=== PATIENT | male | born 1960 | race Caucasian/White ===

== ENCOUNTER → 2017-03-21 | Outpatient (CLI) | payer OTHER | LOC: SLEEPLAB 11:16 | DX: G47.33 Obstructive sleep apnea (adult) (pediatric) (principal) ==

== ENCOUNTER 2017-05-11 05:56 | Day surgery (SDC) | payer OTHER ==
[2017-05-11] VITALS (7 sets, daily range): BP systolic 106–155; BP diastolic 51–81
[~2017-05-11] VITALS: Ht 177.8 cm; Wt 121.1 kg
--- NOTE | ~2017-05-11 | S ---
[facility] [place] [address] SURGICAL PATH RPT PROCEDURE Name: BRENDEN GREY Room #: [place] [facility] [place]#: [id number] Admission: 05/11/17 Date of : 60 Discharge: 05/12/17 Report #: [id number] Path Case #: [id number] PATHOLOGY REPORT COLLECTION DATE: 05/11/2017 RECEIVED DATE: 05/11/2017 SUBMITTING PHYS: Dr. Remington Gerardo OTHER PHYS: Dr. Tr Meza SPECIMEN(S) RECEIVED: A.Gastric sleeve * * * * * * * * * * * * FINAL DIAGNOSIS: "Gastric sleeve", partial gastrectomy: - Gastric mucosa, submucosa and muscular wall with mild to moderate chronic active gastritis, mild activity and focal intestinal metaplasia; no dysplasia seen. - H. pylori PRESENT in small to moderate numbers by immunohistochemical stain (block A2); control reacted appropriately. (CLW:bayron; 05/14/2017) PATHOLOGIST: Lana Wall M.D. REPORT ELECTRONICALLY SIGNED BY: Lana Wall M.D. DATE/TIME: 05/15/2017 09:41 * * * * * * * * * * * * GROSS PATHOLOGY: Received in formalin labeled "Andrew, gastric sleeve", is an elongate portion of stomach with a staple line along its longitudinal axis and weighing 159 g. When opened, it measures 24 cm in length, varies in circumference from about 3.5-13.5 cm and up to 0.6 cm in wall thickness. The serosal surface is generally smooth with a few scattered punctate hemorrhagic areas. The portion of stomach is opened revealing multiple prominent rugal folds and a lumen containing an estimated 10 cc of hemorrhagic material. The mucosal surface has scattered congested and punctate hemorrhagic areas without polyps or masses. [employer] sections are submitted as follows: En face sections of gastric resection margin adjacent staple line A1 and other sections of gastric wall A2-A3. CLINICAL HISTORY: Pre-Op diagnosis: Morbid obesity Postop diagnosis: Same/path pending [facility] [place] [address] SURGICAL PATH RPT PROCEDURE Name: BRENDEN GREY Room #: [facility] M..#: [id number] Admission: 05/11/17 Date of : 60 Discharge: 05/12/17 Report #: [id number] Path Case #: [id number] INITIAL CPT CODE(S): A; 12824, 34249 Professional services performed by [facility] at [address], [place] [address] Technical services performed by [facility] at [address] [place] [address], [facility] [address] [address]. [facility] [address] [place] [id number] PHONE: [phone] DIRECTOR: Ambrocio Whitt M.D. * * * END OF REPORT * * *
--- NOTE | ~2017-05-11 | O ---
[facility] [place] [address] OPERATIVE REPORT Name: BRENDEN GREY Room #: DEP [facility]..#: [id number] Admission: 05/11/17 Attend Phys: Remington Gerardo MD, Discharge: 05/12/17 Date of : 60 Report #: [id number] THIS REPORT FOR: //name// CC: FAM unknown Remington Gerardo DATE OF SERVICE: 05/11/2017 PREOPERATIVE DIAGNOSES: 1. Hypertension. 2. Obstructive sleep apnea. 3. Hyperlipidemia. 4. Lumbago. 5. Bilateral lower extremity joint pain with degenerative arthritis. 6. Coronary artery disease. 7. Morbid obesity with a body mass index of 40.89. POSTOPERATIVE DIAGNOSES: 1. Hypertension. 2. Obstructive sleep apnea. 3. Hyperlipidemia. 4. Lumbago. 5. Bilateral lower extremity joint pain with degenerative arthritis. 6. Coronary artery disease. 7. Morbid obesity with a body mass index of 40.89. PROCEDURES PERFORMED: 1. Laparoscopic sleeve gastrectomy. 2. Esophagogastroduodenoscopy (EGD). SURGEON: Remington Gerardo MD METROLOGY SPECIALIST: Tr Meza MD ANESTHESIA: General endotracheal anesthesia. ESTIMATED BLOOD LOSS: Minimal (less than 10 mL). COMPLICATIONS: None appreciated. SPECIMENS: Gastric sleeve resection specimen to pathology. INDICATIONS: The patient is a 56-year-old morbidly obese male who presented for evaluation for bariatric surgery as he has had a very long history of obesity and has tried numerous weight loss attempts to no avail. The patient has a BMI of greater than 40 while carrying comorbid medical conditions of [facility] [address] [place] [address] OPERATIVE REPORT Name: BRENDEN GREY Room #: [facility] M.R.#: [id number] Admission: 05/11/17 Attend Phys: Remington Gerardo MD, Discharge: 05/12/17 Date of : 60 Report #: [id number] hypertension, hyperlipidemia, coronary artery disease, obstructive sleep apnea, chronic back pain and lower extremity joint pain with arthritis. The patient has been seen by his primary care physician as well as by Psychology and a cna hospice and has received overwhelming support and clearance to proceed with bariatric surgery for weight loss and resolution of his comorbid conditions. The patient has met with me monthly for several months under a physician supervised diet and exercise plan with no real weight loss thus far and as such, indication was for the above-mentioned procedures today. DESCRIPTION OF PROCEDURE: After explaining the risks, benefits and alternatives of the procedure with the patient in detail in the preoperative holding area and obtaining written consent, the patient was brought to the operating room and placed supine on the operating room table. After conducting a thorough timeout procedure verifying correct patient and procedure, the patient was given general endotracheal anesthesia. Once adequate anesthesia was obtained, his SCDs were hooked up to pneumatic compression device and he was given a preoperative dose of antibiotics in line with the SCIP protocol. The patient's abdomen was now prepped and draped in standard surgical sterile fashion after positioning him in the low lithotomy position with his legs in the Yellofin stirrups. I began the procedure by performing an EGD. Using the PsyQicinon upper endoscope, I was able intubate the oropharynx and traverse this down into the esophagus with ease. The scope was advanced to the second portion of the duodenum where slow careful withdrawal of the EGD scope showed no evidence of duodenitis, gastritis, esophagitis, mass lesions or ulcerations. Retroflexion view of the scope showed no evidence of a hiatal hernia. The scope was then straightened out with its tip at the level of pylorus and was taped into position where the stomach was fully desufflated and I turned my attention to the operative portion of the procedure. After sterilely scrubbing, 5 mL of 0.5% Marcaine with epinephrine were used to anesthetize the skin in the right upper abdomen and midclavicular line in a subcostal location. A #15 bladed scalpel was used to create a 1.5 cm transverse skin incision at this location. A 15 mm Visiport was placed over 0 degree 5 mm laparoscope and was introduced through this incision site. Once intraabdominal placement was verified visually, the obturator for the trocar and laparoscope were both removed and the abdomen was insufflated to 15 mmHg using carbon dioxide gas. The laparoscope was changed to a 5 mm 30-degree laparoscope, which was reintroduced through this trocar. The entire abdomen was evaluated to ensure no injury upon entry. I now placed three 5 mm trocars in the patient's left abdomen. The first was placed 1 cm superior to the umbilicus and 2 cm to the patient's left and an additional one was placed 5 cm lateral to that and then a final one was placed in the extreme left lateral flank. All three additional 5 mm ports were placed under direct vision after anesthetizing the skin at each location with 5 mL of 0.5% Marcaine with epinephrine and I had created small skin nicks using #15 bladed scalpel. The laparoscope was now changed to the 5 mm port just to the left of the patient's umbilicus and he was placed in steep reverse Trendelenburg position. I then placed a [place] liver retractor in the subxiphoid location by anesthetizing the skin at that location [facility] [place] [address] OPERATIVE REPORT Name: BRENDEN GREY Room #: DEP [facility] M.R.#: [id number] Admission: 05/11/17 Attend Phys: Remington Gerardo MD, Discharge: 05/12/17 Date of : 60 Report #: [id number] with 5 mL of 0.5% Marcaine with epinephrine and I had created small skin rupert using #15 bladed scalpel. The [place] liver retractor was then maneuvered through this defect where it was positioned up under the left lobe of the liver and was held up against the posterior aspect of the anterior abdominal wall. It was then sutured in position using the Iron Product Blending Supervisor device to stabilize it. We now had complete access to the stomach and hiatal regions and again saw no evidence of a hiatal hernia at this juncture. We now started our dissection after identifying our landmarks. The vein of Marinelli was identified overlying the pylorus. I measured 4 cm proximal to this location and began taking down the short gastric arteries from this location all the way up the greater curvature of the stomach until I arrived upon the base of the left shania. The stomach was then elevated and all posterior gastric attachments were taken down, staying well away from the posterior aspect of the stomach as well as the anterior aspect of the pancreas so as to prevent injury from thermal spread. Now that we had fully mobilized the stomach, we began the stapling portion of the sleeve gastrectomy procedure. The [place] 60 mm stapler with a black load again utilizing Amos's Rose Mary-Strip buttressing material placed on it was entered into the abdomen through the 15 mm trocar. This first firing started at the location 4 cm proximal to the pylorus and fired right along, but not extremely tight to the EGD scope so as not to cause stricturing, especially at the incisura. Another firing of an additional black load again utilizing Amos's Rose Mary-Strip buttressing material was carried out following the scope as a 34-Mongolian bougie. Six additional firings of green loads all utilizing Amos's Rose Mary-Strip buttressing material were carried out following the scope as a bougie all the way up to the left shania until the stomach was completely transected. The resection specimen was placed in the right upper quadrant and staple line was evaluated. We had complete hemostasis with excellent orientation to the sleeve. A 14 mL of Tisseel on the Payoneerlospray device were now used to coat the entirety of the staple line with fibrin glue. Once completed, normal saline was passively instilled into the abdomen and the EGD scope was reactivated and was utilized to gently reinsufflate the remnant stomach. The scope was gently removed, evaluating the staple line from the inside showing no evidence of bleeding whatsoever. We saw no evidence of bubbling in the abdomen which would signify a leak and as such, we had a negative leak test. The EGD scope, desufflated the stomach, was removed via the oropharynx and passed off the field and sterilely scrubbed and reentered the operative field once again. All normal saline was fully evacuated out of the abdomen. The resection specimen was grasped and removed from the abdomen under direct vision. The 15 mm fascial incision was closed using 0 PDS suture on a Bernardino-Álvaro needle under direct vision. This was tied down under direct vision after reducing the insufflation pressure to 8 mmHg. The [place] liver retractor was removed and passed off the field and the liver was healthy and uninjured. Again, we had seen no evidence of a hiatal hernia. We had excellent orientation of the sleeve with no twisting and no bleeding. We had a negative leak test. All ports were now removed under direct vision. The abdomen was fully desufflated. A 4-0 Monocryl was used in a standard subcuticular fashion for all skin incisions and Dermabond [facility] [address] [place] [address] OPERATIVE REPORT Name: BRENDEN GREY Room #: DEP [facility] M.R.#: [id number] Admission: 05/11/17 Attend Phys: Remington Gerardo MD, Discharge: 05/12/17 Date of : 60 Report #: [id number] glue was applied to all skin wounds. The corner of the resection specimen that had been removed was trimmed away and normal saline was passively instilled into the resection specimen yielding 1900 mL of saline in the resection specimen itself. At the end of the procedure, all instrument, needle and sponge counts were correct. The patient tolerated the procedure without incident, was awakened in the operating room, transitioned to the recovery room in a stable condition with no apparent complications. <ELECTRONICALLY SIGNED> By: Remington Gerardo MD, FACS 05/15/17 0944 [id number] 1555 Remington Gerardo MD, FACS /nt
--- NOTE | ~2017-05-11 | EKG ---
[address] [address] ELECTROCARDIOGRAM REPORT Name: BRENDEN GREY Room #: [facility]..#: [id number] Admission: 05/11/17 Attend Phys: Remington Gerardo MD, Discharge: Date of : 60 Report #: [id number] THIS REPORT FOR: //name// [facility] Test Date: 2017-05-11 Test Time: 12:10:17 Pat Name: BRENDEN GREY Department: Room: 150 3 Gender: M Chiropractor Sole Practitioner: KRISTIN : 1960 Requested By: Parker Perry Order Number: [id number] MD: Honorio Suarez Measurements Intervals [place] Rate: 62 P: 0 NH: 226 QRS: 34 QRSD: 115 T: 25 QT: 398 QTc: 405 Interpretive Statements Sinus rhythm Prolonged NH interval Nonspecific intraventricular conduction delay Borderline low voltage, extremity leads Minimal ST elevation, anterior leads No previous ECG available for comparison Electronically Signed On 05-11-2017 21:04:03 CDT by Honorio Suarez [email or web address] <ELECTRONICALLY SIGNED> By: Honorio Suarez MD 05/11/17 2104 121 121 Honorio Suarez MD /EPI
[~2017-05-11 05:56] MED LIST: ALDACTONE50 MG PO; ASPIR 8181 MG PO; CARVEDILOL12.5 MG PO; CENTRUM SILVER1 EAC4 PO; CO Q-10100 MG PO; CRESTOR20 MG PO; KRILL OIL 1,001 EAC1 PO; STOOL SOFTENER100 M1 PO; ZESTRIL10 MG PO
[2017-05-11 11:53] LABS: CALCIUM 9.2 mg/dL (8.5-10.1); CREATININE 0.9 mg/dL (0.7-1.3); POTASSIUM 4.6 mmol/L (3.5-5.1)
[2017-05-12 00:45] VITALS: BP 134/83
[2017-05-12 03:10] VITALS: BP 11/61; BP 111/61
[2017-05-12 06:05] LABS: HEMATOCRIT 43.2 % (42.0-52.0); HEMOGLOBIN 14.6 gm/dL (14.0-18.0); MCH 30.9 pg (26.0-34.0); MCHC 33.7 g/dL (28.0-37.0); MCV 91.8 fL (80.0-100.0); RBC 4.71 mil/uL (4.50-6.00)
[2017-05-12 06:57] LABS: CALCIUM 8.4 mg/dL (8.5-10.1); CREATININE 1.2 mg/dL (0.7-1.3); POTASSIUM 4.2 mmol/L (3.5-5.1)
[2017-05-12 07:15] VITALS: BP 119/63
[2017-05-12] MEDS ORDERED: ZOFRAN ODT4 MG PO (09:46)
[2017-05-12] MEDS ORDERED: HYDROCODONE-ACE15 ML PO (09:46)
[2017-05-12 10:46] VITALS: BP 119/63
== END 2017-05-12 12:30 | disposition home or self-care (01) ==
LOC: TBA 05:56 → OR 05:56 → GI 10:01 → OR 10:13 → EDSTATUS 16:05 → OR 16:05 → 4E 16:40 → OR 05-12 12:30
PROVIDERS: Anesthesiology; Surgery
DX: E66.01 Morbid (severe) obesity due to excess calories (principal); I10 Essential (primary) hypertension; I25.10 Atherosclerotic heart disease of native coronary artery without angina pectoris; I25.2 Old myocardial infarction; E78.5 Hyperlipidemia, unspecified; M19.90 Unspecified osteoarthritis, unspecified site; M54.5 Low back pain; G47.33 Obstructive sleep apnea (adult) (pediatric); Z95.5 Presence of coronary angioplasty implant and graft; Z68.41 Body mass index [BMI] 40.0-44.9, adult; Z87.891 Personal history of nicotine dependence; Z79.899 Other long term (current) drug therapy
CPT/HCPCS: 50010; 50101; 50222; 50249; 50386; 50555; 50739; 50740; 50962; 51436; 51437; 52182; 52265; 53307; 53311; 54022; 54118; 56462; 56525; 56526; 57092; 62110; 62900; 70005